=== PATIENT | male | born 1960 ===

== ENCOUNTER 2021-02-10 11:59 | Emergency (ER) | payer OTHER ==
[~2021-02-10] VITALS: Ht 160 cm; Wt 75.0 kg
[2021-02-10 12:04] VITALS: TEMP 98.3
[2021-02-10 13:37] VITALS: BP 124/74; PULSE 70
== END 2021-02-10 13:39 | disposition home or self-care (01) ==
LOC: COL.ER 11:59
DX: S90.32XA Contusion of left foot, initial encounter (principal); M25.572 Pain in left ankle and joints of left foot; Z88.0 Allergy status to penicillin; X50.1XXA Overexertion from prolonged static or awkward postures, initial encounter